=== PATIENT | male | born 1975 | race Caucasian/White ===

== ENCOUNTER 2018-02-12 06:48 | Day surgery (SDC) | payer OTHER ==
[~2018-02-12 06:48] MED LIST: Lactated Ringers 1,000 ML IV SCH; Sodium Chloride 0.9% 10 ML Syringe FLUSH PRN
[2018-02-12] MEDS ORDERED: ceFAZolin 2 GM in Premix Bag 1 BAG IV ONE (07:45)
[2018-02-12] MEDS ORDERED: Midazolam 1 MG/ML 2 ML SDV IV ONE (08:00)
[2018-02-12] MEDS ORDERED: Propofol 200 MG/20 ML SDV IV ONE (08:00)
[2018-02-12] MEDS ORDERED: Lactated Ringers 1,000 ML IV ONE (08:00)
[2018-02-12] MEDS ORDERED: Ketorolac 30 MG/ML SDV IVPUSH ONE (08:00)
[2018-02-12] MEDS ORDERED: diphenhydrAMINE 50 MG/ML SDV IVPUSH ONE (08:00)
[2018-02-12] MEDS ORDERED: fentaNYL 100 MCG/2 ML SDV IV ONE (08:00)
[2018-02-12] MEDS ORDERED: Dexamethasone 4 MG/ML 5 ML MDV IVPUSH ONE (08:00)
[2018-02-12] MEDS ORDERED: Ondansetron 4 MG/2 ML SDV IVPUSH ONE (08:00)
[2018-02-12] MEDS ORDERED: Bupivacaine 0.5% 30 ML SDV INJECT ONE (08:14)
[2018-02-12] MEDS ORDERED: Lidocaine 1% with EPINEPHrine 1:100,000 20 ML MDV INJECT ONE (08:14)
--- NOTE | 2018-02-12 08:48 | PCM.OPNOTE ---
- General Post-Op/Procedure Note Date of Surgery/Procedure: 02/12/18 Operative Procedure(s): umbilical hernia repair with mesh Findings: 2 cm diameter hernia Pre Op Diagnosis: umbilical hernia Post-Op Diagnosis: Same Anesthesia Technique: General LMA, Local (8 ml 1 % lido with epi/0.5% buvipicaine) Primary Surgeon: Harrison Davidson Anesthesia Provider: Emily Andrade Pathology: hernia sac Complications: None Condition: Good Free Text/Narrative:: see dictation #[id number]
[2018-02-12] MEDS ORDERED: Acetaminophen/HYDROcodone 325-5 MG Tab PO ONE (09:56)
--- NOTE | 2018-02-12 11:11 | OR ---
DATE OF OPERATION: 02/12/2018 SURGEON: Harrison Davidson MD PROCEDURE PERFORMED: Umbilical hernia repair with mesh. PREOPERATIVE DIAGNOSIS: Umbilical hernia without mention of obstruction or gangrene. POSTOPERATIVE DIAGNOSIS: Umbilical hernia without mention of obstruction or gangrene. INDICATIONS FOR PROCEDURE: This is a 42-year-old white male with a symptomatic umbilical hernia. He was offered and accepted repair. INTRAOPERATIVE FINDINGS: A 2-cm defect was identified. This was repaired with a Ventralex ST hernia patch, reference #[id number], lot number [id number], with an expiration date of 2019-11-04. 8 mL of a 1:1 mixture of 1% lidocaine with epinephrine, 0.5% bupivacaine was used. DESCRIPTION OF PROCEDURE: After an excellent LMA anesthetic was administered, the patient was prepped and draped in the usual sterile manner. Local was used to create a field block around the umbilicus. Curvilinear incision was then made at the base of the umbilicus. A combination of sharp and electrocautery dissection was used to dissect the hernia sac free from the surrounding structures as well as the underside of the umbilicus. The hernia sac was entered and noted to be quite thick with peritoneum. No incarcerated intraabdominal contents were noted. Due to this thickness, the base of the hernia sac was transected using the LigaSure, and the specimen was passed off the field. The mesh was then soaked and inserted into the abdominal wall. Then, using the tail, gentle pressure was used to bring the mesh up against the anterior abdominal wall. The defect then was closed with a running #0 Prolene, and the tails were excised. The umbilicus was then tacked to the anterior abdominal wall using two interrupted 0 Vicryl sutures, and the skin was closed using a running subcu 4-0 Vicryl. Steri-Strips were applied. Needle, sponge, and instrument counts were reported as correct. The patient was taken to the recovery room in a good condition. /[id number] /MODL
== END 2018-02-12 11:22 | disposition home or self-care (01) ==
LOC: FB.SDS 06:48
PROVIDERS: ATTEND Surgery
DX: K42.9 Umbilical hernia without obstruction or gangrene (principal); K21.9 Gastro-esophageal reflux disease without esophagitis; Z91.048 Other nonmedicinal substance allergy status; Z87.891 Personal history of nicotine dependence
CPT/HCPCS: 88302; A9270-GY; C1781; J0690; J1100; J1200; J1885; J2250; J2405; J2704; J3010; J7120